=== PATIENT | male | born 1965 | race Caucasian/White ===

== ENCOUNTER 2018-06-18 20:18 | Emergency (ER) | payer OTHER ==
--- NOTE | 2018-06-18 21:42 | EDPHY ---
HPI/HX/ROS/PE/MDM Narrative: CHIEF COMPLAINT: Flu-like symptoms, difficulty breathing. HPI: This patient is a 52 year old male with history of hypothyroidism. He complains of difficulty breathing and flu-like symptoms. On Tuesday, five days ago, he developed fever, chills, cough, and nasal congestion. He was evaluated by a telemedicine provider through his insurance company who prescribed Tamiflu. He has been taking this for several days as well as decongestants and Aleve for symptom relief. Today, he felt he exerted himself more than usual and developed difficulty breathing. He feels his lungs are "full of cotton". He feels it is hard to take a deep breath, and he has been lightheaded. He has history of pneumonia and is concerned that he may have that again. He denies nausea, vomiting, diarrhea, urinary complaints, or other associated symptoms. REVIEW OF SYSTEMS: A comprehensive 10 system review of systems is otherwise negative aside from elements mentioned in the history of present illness and medical decision making. PMH: Hypothyroid. SOCIAL HISTORY: Employed. 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 Lives in [place]. Single. PHYSICAL EXAM: General:Patient is alert, in no acute distress. ENT:Eyes are normal to inspection. ENT inspection normal. Neck: Normal inspection. Full range of motion. Respiratory:No respiratory distress. Mildly diminished breath sounds bilaterally, no wheezing. Cardiovascular: Regular rate and rhythm. Strong peripheral pulses. Normal cap refill. Abdomen:The abdomen is nontender to palpation. There are no peritoneal signs. There are normal bowel sounds. Back: Normal to inspection. No tenderness to palpation. Skin: Normal color. No rash. Warm and dry. Extremities: Normal appearance. Full range of motion. Neuro: Oriented x3. Normal motor function. Normal sensory function. ED Course: 52 y/o male presents with difficulty breathing after recent flu diagnosis. No flu swab conducted, so we will perform the test here. On exam, diminished breath sounds bilaterally. Plan for chest x-ray. Flu test today is negative. Of note, the patient has been taking Tamiflu for several days prior to evaluation here. 22:[address] Pearce, radiologist. Chest x-ray is positive for left lower lobe pneumonia. Reassessed patient. Discussed imaging results. Plan to discharge home in good condition with prescription for azithromycin. Follow up and return precautions discussed. He is comfortable with this plan. - Data Points Imaging Results: Imaging Impressions Chest X-Ray 06/18/18 21:43 Impression: Patchy infiltrate left lower lobe suggesting pneumonia. Imaging: Discussed imaging studies w/ director call Radiologist, I viewed and interpreted images myself Laboratory Results: 06/18/18 20:28 Nasal Influenza A PCR NEGATIVE FOR FLU A (NEGATIVE) Nasal Influenza B PCR NEGATIVE FOR FLU B (NEGATIVE) Medications Given: Discontinued Medications Azithromycin (Zithromax) 500 mg PO EDNOW ONE PRN Reason: Protocol Stop: 06/18/18 22:15 Last Admin: 06/18/18 22:23 Dose: 500 mg General Time Seen by Provider: 06/18/18 20:38 Initial Vital Signs: Initial Vital Signs Temperature (C) 36.4 C 06/18/18 20:21 Heart Rate 68 06/18/18 20:21 Respiratory Rate 16 06/18/18 20:21 Blood Pressure 137/70 H 06/18/18 20:21 O2 Sat (%) 95 06/18/18 20:21 O2 Delivery Mode Room Air Allergies/Adverse Reactions: Sulfa (Sulfonamide Antibiotics) Allergy (Verified 06/18/18 20:24) Home Medications: Medication Instructions Recorded Azithromycin [Zithromax] 250 mg PO DAILY #6 tab 06/18/18 Synthroid 06/18/18 Tamiflu 06/18/18 Testosterone 06/18/18 Departure - Departure Disposition: Home, Routine, Self-Care Clinical Impression: Pneumonia Qualifiers: Pneumonia type: due to unspecified organism Laterality: left Lung location: lower lobe of lung Qualified Code(s): J18.1 - Lobar pneumonia, unspecified organism Condition: Good Instructions: Azithromycin (By mouth), Pneumonia (ED) Additional Instructions: Take Zithromax as prescribed. It is important to finish your entire course of antibiotics even if you are feeling better. You may take Tylenol 650mg every 4-6 hours, ibuprofen 600 mg every 6 hours as needed for fever or pain. Increase fluid intake as much as tolerated. Follow up with your primary care physician in 2-3 days. Return to the Emergency Department for uncontrollable fever, shortness of breath , or other worsening of condition. Referrals: NANCY CASAREZ [Other] - As per Instructions Prescriptions: Azithromycin [Zithromax] 250 mg PO DAILY #6 tab Report Scribed for: Georges Corral Report Scribed by: Michelle Reddy Date of Report: 06/18/18 Time of Report: 22:16 Physician Review and Approval Statement: Portions of this note were transcribed by an ED scribe. I personally performed the history, physical exam, and medical decision making; and confirm the accuracy of the information in the transcribed note.
[2018-06-18] MEDS ORDERED: AZITHROMYCIN 250 MG TAB PO ONE (22:14)
[2018-06-18 22:24] VITALS: BP 111/79
== END 2018-06-18 22:27 | disposition home or self-care (01) ==
DX: J18.1 Lobar pneumonia, unspecified organism (principal); E03.9 Hypothyroidism, unspecified; Z88.2 Allergy status to sulfonamides

== ENCOUNTER → 2018-07-07 | Outpatient (CLI) | payer OTHER | LOC: FIMAGING 11:26 | DX: J18.1 Lobar pneumonia, unspecified organism (principal) ==